=== PATIENT | female | born 1975 | race African-American/Black ===

== ENCOUNTER 2018-07-02 17:07 | Emergency (ER) | payer SELFPAY ==
[2018-07-02 17:20] VITALS: BP 135/81
--- NOTE | 2018-07-02 17:33 | ER Document Report ---
ED Medical Screen (RME) - General Chief Complaint: Anxiety Stated Complaint: ANXIETY ATTACK Time Seen by Provider: 07/02/18 17:28 Mode of Arrival: Ambulatory Information source: Patient Notes: Patient says she is having an anxiety attack. She would not give me any more history apart from that. She said that staying around people she does not know make her more anxious. I have greeted and performed a rapid initial assessment of this patient. A comprehensive ED assessment and evaluation of the patient, analysis of test results and completion of the medical decision making process will be conducted by additional ED providers. TRAVEL OUTSIDE OF THE [place] IN LAST 30 DAYS: No - Related Data Allergies/Adverse Reactions: amoxicillin [Amoxicillin] Allergy (Verified 07/02/18 17:26) Hives Past Medical History - Social History Frequency of alcohol use: None Drug Abuse: Marijuana - Past Medical History Cardiac Medical History: Reports: Hx Hypertension Pulmonary Medical History: Reports: Hx Asthma Renal/ Medical History: Denies: Hx Peritoneal Dialysis Malignancy Medical History: Reports: Hx Cervical Cancer Past Surgical History: Reports: Hx Hysterectomy - Immunizations Immunizations up to date: Yes Hx Diphtheria, Pertussis, Tetanus Vaccination: Yes Physical Exam - Vital signs Vitals: Temp Pulse Resp BP Pulse Ox 98.2 F 104 H 20 135/81 H 100 07/02/18 17:19 07/02/18 17:19 07/02/18 17:19 07/02/18 17:19 07/02/18 17:19 Course - Vital Signs Vital signs: Temp Pulse Resp BP Pulse Ox 98.2 F 104 H 20 135/81 H 100 07/02/18 17:19 07/02/18 17:19 07/02/18 17:19 07/02/18 17:19 07/02/18 17:19 Doctor's Discharge - Discharge Instructions: Anxiety ([facility]) Referrals: KEYON MESSER MD [Primary Care Provider] - Follow up as needed
[2018-07-02] MEDS ORDERED: HYDROXYZINE HCL INJ 50 MG/1 ML VIAL IM ONE (18:19)
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
--- NOTE | 2018-07-02 20:13 | PSYCHOLOGICAL NOTE ---
Psych Note - Psych Note Psych Note: Met with Patient via telepsych. Patient was visibly shaking and anxious. She reported she believes her anxiety is related to the discontinuation of her celexa and gabapentin and being 0placed on buspar and abilify by [facility]. She was just discharged from [facility] on Jun 26, 2018 after she was inpatient for suicidal ideation. She reported her outpatient provider is [facility]. Discussion with patient revealed she generally feels good in the morning but by afternoon her depression starts and by evening she becomes ruminative and cannot sleep with the anxiety overcoming her. She indicated she does take Amlodipine in the morning for her blood pressure. She reported no significant stressor that triggers her depression or anxiety. Following discussion with Patient it appears possible the timing of taking her medication might be impacting her mood states and it was suggested the timing of her meds be discussed with her physician. She also indicated she felt as thought the Abilify was not helpful in addressing her depression. Patient was alert and oriented to person, place, time, and circumstance. Mood was anxious and affect was mood congruent. She denied suicidal / homicidal ideation, intent or plan. She denied auditory / visual hallucination and no delusional thoughts were noted. Thought processes were logical, rational, and linear. Conversational speech was within normal limits for rate, tone, and prosody. Intellectual abilities were estimated within the average range. Eye contact was well maintained. Attention and concentration was fair. Insight, judgment, and impulse control was fair. Diagnoses: 1. Generalized Anxiety Disorder with Depression Medication Recommendation from consulting psychiatric provider: 1. Discontinue Abilify 2. Start Effexor 37.5 mg daily 3. Continue Buspar 5 mg every morning and 10 mg every night Impression/ Plan: Patient is cleared from acute psychiatric services. Education was provided to Patient regarding anxiety, depression and neurobiology of the brain and neurotransmitters. Also discussed was how medications work within the body and how activities, hydration, self-care, etc. impact efficacy of medication. Patient indicated this information helped her tremendously and gave her hope regarding her mental health issues and she felt much better with the understanding of how medications work. Patient's two adult sons were present and indicated they were willing to care for their mother and she felt comfortable going with them. Patient reported her understanding of changing her medication times and the side effects of the new medications. ED Provider in agreement with recommendations and disposition.
== END 2018-07-02 19:36 | disposition home or self-care (01) ==
LOC: ER 17:07
DX: F41.9 Anxiety disorder, unspecified (principal)
CPT/HCPCS: 99284; 96372; J3490

== ENCOUNTER 2018-07-05 14:16 | Emergency (ER) | payer SELFPAY ==
--- NOTE | 2018-07-05 14:39 | ER Document Report ---
ED Medical Screen (RME) - General Chief Complaint: Suicidal Ideation Stated Complaint: SUICIDAL IDEATION Time Seen by Provider: 07/05/18 14:36 Mode of Arrival: Ambulatory Information source: Patient Notes: 42-year-old female presents to ED for suicidal ideation. She had a conference with Dr. Piña a few days ago. She states she does not want medication refills now she just wants to . She states the only medication she wants something to help her . Patient is answering questions appropriately walking with a even steady gait respirations regular and unlabored. I have greeted and performed a rapid initial assessment of this patient. A comprehensive ED assessment and evaluation of the patient, analysis of test results and completion of medical decision making process will be conducted by an additional ED providers. TRAVEL OUTSIDE OF THE [place] IN LAST 30 DAYS: No - Related Data Allergies/Adverse Reactions: amoxicillin [Amoxicillin] Allergy (Verified 07/02/18 17:26) Hives Past Medical History - Social History Chew tobacco use (# tins/day): No Frequency of alcohol use: None Drug Abuse: None - Past Medical History Cardiac Medical History: Reports: Hx Hypertension Pulmonary Medical History: Reports: Hx Asthma Renal/ Medical History: Denies: Hx Peritoneal Dialysis Malignancy Medical History: Reports: Hx Cervical Cancer Past Surgical History: Reports: Hx Hysterectomy - Immunizations Immunizations up to date: Yes Hx Diphtheria, Pertussis, Tetanus Vaccination: Yes Doctor's Discharge - Discharge Referrals: KEYON MESSER MD [Primary Care Provider] - Follow up as needed
[2018-07-05 15:58] LABS: ABSOLUTE EOSINOPHILS # (AUTO) 0.1 10^3/uL (0.0-0.6); ABSOLUTE LYMPHOCYTES (AUTO) 2.2 10^3/uL (0.5-4.7); ABSOLUTE MONOCYTES (AUTO) 0.5 10^3/uL (0.1-1.4); ABSOLUTE NEUT (AUTO) 9.1 10^3/uL (1.7-8.2); BASOPHILS % (AUTO) 0.4 % (0-2); EOSINOPHILS % (AUTO) 0.6 % (0-6); HEMATOCRIT 44.5 % (36.0-47.0); HEMOGLOBIN 14.7 g/dL (12.0-15.5); LYMPHOCYTES % (AUTO) 18.5 % (13-45); MEAN CORPUSCULAR HEMOGLOBIN 26.4 pg (27.0-33.4); MEAN CORPUSCULAR HGB CONC 33.1 g/dL (32.0-36.0); MEAN CORPUSCULAR VOLUME 80 fl (80-97); MONOCYTES % (AUTO) 4.5 % (3-13); PLATELET COUNT 428 10^3/uL (150-450); RED BLOOD COUNT 5.58 10^6/uL (3.72-5.28); RED CELL DISTRIBUTION WIDTH 14.7 % (11.5-14.0); TOTAL CELLS COUNTED % (AUTO) 100 %
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
[2018-07-05 16:17] LABS: ALANINE AMINOTRANSFERASE 45 U/L (9-52); ALKALINE PHOSPHATASE 76 U/L (38-126); ANION GAP 12 (5-19); ASPARTATE AMINO TRANSFERASE 27 U/L (14-36); BILIRUBIN,DIRECT 0.3 mg/dL (0.0-0.4); BILIRUBIN,TOTAL 0.5 mg/dL (0.2-1.3); BLOOD UREA NITROGEN 12 mg/dL (7-20); CALCIUM 10.6 mg/dL (8.4-10.2); CARBON DIOXIDE 28 mmol/L (22-30); CHLORIDE 103 mmol/L (98-107); GLUCOSE 107 mg/dL (75-110); POTASSIUM 4.1 mmol/L (3.6-5.0); SODIUM 142.6 mmol/L (137-145); TOTAL PROTEIN 9.1 g/dL (6.3-8.2)
[2018-07-05 16:18] LABS: ACETAMINOPHEN < 10 ug/mL (10-30); ALCOHOL < 10 mg/dL (NONE DETECTED); SALICYLATE < 1.0 mg/dL (2.0-20.0)
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
[2018-07-05] MEDS ORDERED: BUSPIRONE HCL 10 MG TABLET PO ONE (16:35)
[2018-07-05] MEDS ORDERED: VENLAFAXINE HCL 37.5 MG CAP.SR.24H PO ONE (16:35)
[2018-07-05 16:40] LABS: APPEARANCE,URINE CLEAR; BILIRUBIN,URINE NEGATIVE (NEGATIVE); COLOR,URINE STRAW; GLUCOSE, URINE NEGATIVE (NEGATIVE); KETONES,URINE NEGATIVE (NEGATIVE); LEUKOCYTE ESTERASE,URINE NEGATIVE (NEGATIVE); NITRITE,URINE NEGATIVE (NEGATIVE); PROTEIN,URINE NEGATIVE (NEGATIVE); URINE SPECIFIC GRAVITY 1.013
[2018-07-05 16:49] LABS: URINE AMPHETAMINES SCREEN NEGATIVE; URINE BARBITURATES SCREEN NEGATIVE; URINE BENZODIAZEPINES SCREEN NEGATIVE; URINE MARIJUANA (THC) SCREEN UNCONFIRMED POSITIVE; URINE METHADONE SCREEN NEGATIVE; URINE PHENCYCLIDINE SCREEN NEGATIVE
[2018-07-05 16:59] LABS: URINE COCAINE SCREEN NEGATIVE
--- NOTE | 2018-07-05 21:15 | EKG REPORT ---
SEVERITY:- BORDERLINE ECG - SINUS TACHYCARDIA PROBABLE LEFT ATRIAL ABNORMALITY BORDERLINE T ABNORMALITIES, ANT-LAT LEADS : Confirmed by: Star Barrow 05-Jul-2018 21:14:54
== END 2018-07-05 19:10 | disposition home or self-care (01) ==
LOC: ER 14:16
DX: F33.41 Major depressive disorder, recurrent, in partial remission (principal); Z79.899 Other long term (current) drug therapy; J45.909 Unspecified asthma, uncomplicated; I10 Essential (primary) hypertension
CPT/HCPCS: 93005; 99285; 36415; 80307 ×4; 84703; 85025; 80053; 81001; 93010; J3490

== ENCOUNTER 2018-07-07 18:52 | Emergency (ER) | payer SELFPAY ==
--- NOTE | 2018-07-07 19:33 | ER Document Report ---
ED Medical Screen (RME) - General TRAVEL OUTSIDE OF THE U.S. IN LAST 30 DAYS: No <MARINA TREVINO - Last Filed: 07/07/18 19:32> <ZENOBIA VALDEZ - Last Filed: 07/07/18 21:31> - General Chief Complaint: Suicidal Ideation Stated Complaint: SUICIDAL IDEATION Time Seen by Provider: 07/07/18 19:31 Notes: 42 years old female presents today with depression suicidal ideation by taking overdose of pills. She was discharged recently from [facility] for similar reason. She was put on Abilify but she has not been taking them. Has a history of PTSD also Appear to be suicidal. (MARINA TREVINO) - Related Data Allergies/Adverse Reactions: amoxicillin [Amoxicillin] Allergy (Verified 07/07/18 19:28) Hives Past Medical History - Social History Frequency of alcohol use: None Drug Abuse: None - Past Medical History Cardiac Medical History: Reports: Hx Hypertension Pulmonary Medical History: Reports: Hx Asthma Renal/ Medical History: Denies: Hx Peritoneal Dialysis Malignancy Medical History: Reports: Hx Cervical Cancer Past Surgical History: Reports: Hx Hysterectomy - Immunizations Immunizations up to date: Yes Hx Diphtheria, Pertussis, Tetanus Vaccination: Yes <MARINA TREVINO - Last Filed: 07/07/18 19:32> - Vital signs Vitals: Temp Resp BP Pulse Ox 98.4 F 16 143/93 H 143 H 07/07/18 19:12 07/07/18 19:12 07/07/18 19:12 07/07/18 19:12 Course - Laboratory Result Diagrams: 07/07/18 21:00 07/07/18 21:00 <ZENOBIA VALDEZ - Last Filed: 07/07/18 21:31> - Vital Signs Vital signs: Temp Pulse Resp BP Pulse Ox 98.4 F 16 143/93 H 143 H 07/07/18 19:12 07/07/18 19:12 07/07/18 19:12 07/07/18 19:12 - Laboratory Laboratory results interpreted by me: 07/07/18 07/07/18 20:49 21:00 WBC 13.9 H RBC 5.45 H MCV 79 L MCH 26.2 L RDW 14.3 H Absolute Neutrophils 10.2 H Urine Protein 30 H Urine Blood SMALL H Ur Leukocyte Esterase TRACE H Doctor's Discharge <MARINA TREVINO - Last Filed: 07/07/18 19:32> <ZENOBIA VALDEZ - Last Filed: 07/07/18 21:31> - Discharge Referrals: KEYON MESSER MD [Primary Care Provider] - Follow up as needed
[2018-07-07 21:15] LABS: ABSOLUTE EOSINOPHILS # (AUTO) 0.1 10^3/uL (0.0-0.6); ABSOLUTE LYMPHOCYTES (AUTO) 2.7 10^3/uL (0.5-4.7); ABSOLUTE MONOCYTES (AUTO) 0.9 10^3/uL (0.1-1.4); ABSOLUTE NEUT (AUTO) 10.2 10^3/uL (1.7-8.2); BASOPHILS % (AUTO) 0.4 % (0-2); EOSINOPHILS % (AUTO) 0.6 % (0-6); HEMATOCRIT 43.2 % (36.0-47.0); HEMOGLOBIN 14.3 g/dL (12.0-15.5); LYMPHOCYTES % (AUTO) 19.5 % (13-45); MEAN CORPUSCULAR HEMOGLOBIN 26.2 pg (27.0-33.4); MEAN CORPUSCULAR VOLUME 79 fl (80-97); MONOCYTES % (AUTO) 6.3 % (3-13); PLATELET COUNT 432 10^3/uL (150-450); RED BLOOD COUNT 5.45 10^6/uL (3.72-5.28); RED CELL DISTRIBUTION WIDTH 14.3 % (11.5-14.0); SEGMENTED NEUTROPHILS % (AUTO) 73.2 % (42-78); TOTAL CELLS COUNTED % (AUTO) 100 %; WHITE BLOOD COUNT 13.9 10^3/uL (4.0-10.5)
[2018-07-07 21:17] LABS: APPEARANCE,URINE CLEAR; COLOR,URINE YELLOW; GLUCOSE, URINE NEGATIVE (NEGATIVE)
[2018-07-07 21:18] LABS: BILIRUBIN,URINE NEGATIVE (NEGATIVE); KETONES,URINE NEGATIVE (NEGATIVE); LEUKOCYTE ESTERASE,URINE TRACE (NEGATIVE); NITRITE,URINE NEGATIVE (NEGATIVE); PROTEIN,URINE 30 mg/dL (NEGATIVE); URINE SPECIFIC GRAVITY 1.015; UROBILINOGEN,URINE NEGATIVE mg/dL (<2.0)
[2018-07-07 21:47] LABS: URINE AMPHETAMINES SCREEN NEGATIVE; URINE BARBITURATES SCREEN NEGATIVE; URINE BENZODIAZEPINES SCREEN NEGATIVE; URINE COCAINE SCREEN NEGATIVE; URINE MARIJUANA (THC) SCREEN UNCONFIRMED POSITIVE; URINE METHADONE SCREEN NEGATIVE; URINE PHENCYCLIDINE SCREEN NEGATIVE
[2018-07-07 21:53] LABS: ALANINE AMINOTRANSFERASE 31 U/L (9-52); ALBUMIN 4.9 g/dL (3.5-5.0); ALKALINE PHOSPHATASE 77 U/L (38-126); ANION GAP 12 (5-19); ASPARTATE AMINO TRANSFERASE 21 U/L (14-36); BILIRUBIN,DIRECT 0.5 mg/dL (0.0-0.4); BILIRUBIN,TOTAL 0.9 mg/dL (0.2-1.3); BLOOD UREA NITROGEN 13 mg/dL (7-20); CALCIUM 9.8 mg/dL (8.4-10.2); CARBON DIOXIDE 27 mmol/L (22-30); CHLORIDE 102 mmol/L (98-107); GLUCOSE 94 mg/dL (75-110); POTASSIUM 3.2 mmol/L (3.6-5.0); SODIUM 140.7 mmol/L (137-145); TOTAL PROTEIN 9.1 g/dL (6.3-8.2)
[2018-07-07 21:56] LABS: ACETAMINOPHEN < 10 ug/mL (10-30); ALCOHOL < 10 mg/dL (NONE DETECTED); SALICYLATE < 1.0 mg/dL (2.0-20.0)
--- NOTE | 2018-07-07 21:59 | ER Document Report ---
ED Psych Disorder / Suicide - General Chief Complaint: Suicidal Ideation Stated Complaint: SUICIDAL IDEATION Time Seen by Provider: 07/07/18 19:31 Mode of Arrival: Ambulatory Information source: Patient Notes: Patient presented to the emergency room today, complaining of suicidal ideation. She said ever since her baby sister a couple of months ago she has been suicidal. She feels her life is worthless and she does not want to live anymore. She wants to overdose on her medication in order to commit suicide. Patient has been hospitalized before for suicidal ideation. She was discharged with some psychiatric medication which she said is not working and the medication is making her suicide ideation worse. TRAVEL OUTSIDE OF THE [place] IN LAST 30 DAYS: No - HPI Patient complains to provider of: Suicidal ideation, Suicidal plan Onset: Other - 2 months. Onset was: Gradual Quality of pain: No pain Severity: None Pain Level: Denies Suicide Risk Factors: Depressed Situational problems related to: Other - Loss of loved one. Suicide Attempt Method: Overdose Normal mood: Yes Associated symptoms: Normal mood, Flat affect Similar symptoms previously: Yes Recently seen / treated by doctor: No - Related Data Allergies/Adverse Reactions: amoxicillin [Amoxicillin] Allergy (Verified 07/07/18 19:28) Hives Past Medical History - Social History Smoking Status: Never Smoker Frequency of alcohol use: None Drug Abuse: None Family History: Reviewed & Not Pertinent Patient has suicidal ideation: Yes Patient has homicidal ideation: No - Past Medical History Cardiac Medical History: Reports: Hx Hypertension Pulmonary Medical History: Reports: Hx Asthma Renal/ Medical History: Denies: Hx Peritoneal Dialysis Malignancy Medical History: Reports: Hx Cervical Cancer Psychiatric Medical History: Reports: Hx Depression - suicide attempt w/ pills May 2018 Past Surgical History: Reports: Hx Hysterectomy - Immunizations Immunizations up to date: Yes Hx Diphtheria, Pertussis, Tetanus Vaccination: Yes Review of Systems - Review of Systems Constitutional: No symptoms reported EENT: No symptoms reported Cardiovascular: No symptoms reported Respiratory: No symptoms reported Gastrointestinal: No symptoms reported Genitourinary: No symptoms reported Female Genitourinary: No symptoms reported Musculoskeletal: No symptoms reported Skin: No symptoms reported Hematologic/Lymphatic: No symptoms reported Neurological/Psychological: Depression, Suicidal ideation. denies: Homicidal ideation -: Yes All other systems reviewed and negative Physical Exam - Vital signs Vitals: Temp Resp BP Pulse Ox 98.4 F 16 143/93 H 143 H 07/07/18 19:12 07/07/18 19:12 07/07/18 19:12 07/07/18 19:12 - General General appearance: Appears well, Alert In distress: None - HEENT Head: Normocephalic, Atraumatic Eyes: Normal Pupils: PERRL - Respiratory Respiratory status: No respiratory distress Chest status: Nontender Breath sounds: Normal Chest palpation: Normal - Cardiovascular Rhythm: Regular Heart sounds: Normal auscultation Murmur: No - Abdominal Inspection: Normal Distension: No distension Bowel sounds: Normal Tenderness: Nontender Organomegaly: No organomegaly - Back Back: Normal, Nontender - Extremities General upper extremity: Normal inspection, Nontender, Normal color, Normal ROM , Normal temperature General lower extremity: Normal inspection, Nontender, Normal color, Normal ROM , Normal temperature, Normal weight bearing. No: Adi's sign - Neurological Neuro grossly intact: Yes Cognition: Normal Orientation: AAOx4 [place] Coma Scale Eye Opening: Spontaneous Sarah Coma Scale Verbal: Oriented [place] Coma Scale Motor: Obeys Commands [place] Coma Scale Total: 15 Speech: Normal Motor strength normal: LUE, RUE, LLE, RLE Sensory: Normal - Psychological Associated symptoms: Normal mood, Flat affect - Skin Skin Temperature: Warm Skin Moisture: Dry Skin Color: Normal Course - Vital Signs Vital signs: Temp Pulse Resp BP Pulse Ox 98 F 74 14 122/78 98 07/07/18 22:47 07/07/18 22:47 07/07/18 22:47 07/07/18 22:47 07/07/18 22:47 - Laboratory Result Diagrams: 07/07/18 21:00 07/07/18 21:00 Laboratory results interpreted by me: 07/07/18 07/07/18 07/07/18 20:49 21:00 21:00 WBC 13.9 H RBC 5.45 H MCV 79 L MCH 26.2 L RDW 14.3 H Absolute Neutrophils 10.2 H Potassium 3.2 L Direct Bilirubin 0.5 H Total Protein 9.1 H Urine Protein 30 H Urine Blood SMALL H Ur Leukocyte Esterase TRACE H Salicylates < 1.0 L Acetaminophen < 10 L - EKG Interpretation by Sd EKG shows normal: Sinus rhythm Rate: Normal - 88 Rhythm: NSR When compared to previous EKG there are: Previous EKG unavailable Additional EKG results interpreted by me: 07/07/18 21:54 Nonspecific T-wave changes. No STEMI. - Transfer of Care Notes: 07/07/18 21:54 Suicidal ideation. Discharge - Discharge Clinical Impression: Suicidal ideation, Marijuana abuse, Hypokalemia Major depressive disorder Qualifiers: Major depression recurrence: recurrent Active/Remission status: remission status unspecified Qualified Code(s): F33.9 - Major depressive disorder, recurrent, unspecified Condition: Stable Disposition: PSYCH HOSP/UNIT Referrals: KEYON MESSER MD [Primary Care Provider] - Follow up as needed
[2018-07-07] MEDS ORDERED: POTASSIUM CHLORIDE 20 MEQ/15 ML UDCUP PO ONE (22:21)
[2018-07-07 22:48] VITALS: BP 122/78
[2018-07-08] MEDS ORDERED: LORAZEPAM 1 MG TABLET PO ONE (02:26)
[2018-07-08] MEDS ORDERED: BUSPIRONE HCL 10 MG TABLET PO ONE (12:13)
--- NOTE | 2018-07-08 12:19 | ER Document Report ---
Doctor's Note Notes: 07/08/18 12:18 Patient has been seen and evaluated resting comfortably no acute distress. Laboratory values previous provider note and vital signs have been evaluated. Patient otherwise looks to be stable for disposition/transfer.
--- NOTE | 2018-07-08 15:26 | EKG REPORT ---
SEVERITY:- BORDERLINE ECG - SINUS RHYTHM BORDERLINE T WAVE ABNORMALITIES : Confirmed by: Sayra Akhtar MD 08-Jul-2018 15:24:46
--- NOTE | 2018-07-08 19:40 | PSYCHOLOGICAL NOTE ---
Psych Note - Psych Note Psych Note: Chart review at 0817. Evaluation from [id number]. Attempted collateral from son at 0943 no answer (spoke to him finally from [id number]). Reason for Consult: Depression, SI with plan to OD on sleeping pills Contact Permissions: Joe Peralta [phone] Patient is a 42 year old female who presented to the ED last evening on her own for depression and SI. She stated "I am good but could be better" when asked how she was doing. She stated she was not able to get medications filled from (this clinician referenced that visit) visit and had only 3 days of actual medications the hospital gave to her. She noted "too much stress with daughter being out of state due to [place], staying with son, and the arguing environment at her son's." She said [address] at [facility] was still her provider and her pharmacy was [facility] but she has used [facility] (this clinician aware this particular local pharmacy was open today) previously. She denied SI and commented "not now in this moment but get anxious about going back to that environment." Patient was alert and oriented to person, place, time and situation. Mood was euthymic with congruent affect. She denied current SI/HI. She did not appear to be responding to internal stimuli as evidenced by fair eye contact, answering questions appropriately when addressed, staying on topic and carrying on dialogue conversation. Thought processes were linear and organized. Conversational speech was within normal limits for rate, tone and prosody. Intellectual abilities are estimated to be average. Insight, judgment and impulse control were fair as evidenced by bright/euthymic affect with linear/ organized thinking. Chart review revealed patient was seen by Dr. Piña 07/02/18 for similar etiology after just being discharged from [facility] on 06/26/18 where she was prescribed Abilify and Buspar. Her medications were changed as follows: Discontinued Abilify, Added Effexor 37.5MG QD and Continue Buspar 5MG QAM/10MG QHS. A safe discharge was coordinated with 2 sons. Then she came back and saw another Behavioral Health Clinician on 07/05/18 for similar etiology but noted grief from her baby sister passing away in February 2018. She was discharged again given she had just been seen and provided medications changes with scripts. Patient's son identified he "thinks patient is pill popping, said she takes her medications so fast, mentioned she just want s to take her Gabapentin, and she seems to be playing since this is her 3rd visit to the ED in a week period and was just discharged from [facility]." He stated he and his brother have been paying for medications and will continue if she takes them accordingly. He stated they would be in control of medications and administration and he would be able to provide transportation from ED back to his home. Provided him with the I[facility] MCM number and explained it's use (talk therapy, crisis, linkage to other services/ supports). He was also informed patient should follow up with medication provider at [facility] or another linkage [facility] could provide joey. Diagnosis: 300.02 (F41.1) Generalized Anxiety Disorder 311 9F32.9) Unspecified Depressive Disorder Impression/Plan: Patient is cleared from acute psychiatric services. She denied current SI/HI. There was no observed psychosis. Local [facility] open in order to obtain medications she said she could not fill. She had bright/euthymic mood/ affect and linear/organized thinking. Sons on board with being in charge of medications and administration. Sounds like she is misusing medications per son. Son provided IF MCM number and usages (talk therapy, crisis, linkages to other services/supports). Patient;s son made aware she should follow up with outpatient provider at [facility] or another linkage [facility] could provide for medication management joey. Consulted with Dr. Piña regarding the management and care of patient. ED Physician in agreement with recommendations.
== END 2018-07-08 12:24 | disposition home or self-care (01) ==
LOC: ER 18:52
DX: R45.851 Suicidal ideations (principal); F32.9 Major depressive disorder, single episode, unspecified; E87.6 Hypokalemia; F33.9 Major depressive disorder, recurrent, unspecified; F12.10 Cannabis abuse, uncomplicated; I10 Essential (primary) hypertension; Z88.0 Allergy status to penicillin
CPT/HCPCS: 36415; 80053; 80307; 81001; 84443; 85025; 93005; 93010; 99285

== ENCOUNTER 2020-04-03 00:31 | Emergency (ER) | payer SELFPAY ==
[2020-04-03 01:22] LABS: ABSOLUTE BASOPHILS # (AUTO) 0.1 10^3/uL (0.0-0.2); ABSOLUTE EOSINOPHILS # (AUTO) 0.3 10^3/uL (0.0-0.6); ABSOLUTE MONOCYTES (AUTO) 0.7 10^3/uL (0.1-1.4); ABSOLUTE NEUT (AUTO) 7.6 10^3/uL (1.7-8.2); BASOPHILS % (AUTO) 0.6 % (0-2); EOSINOPHILS % (AUTO) 2.5 % (0-6); HEMATOCRIT 41.8 % (36.0-47.0); HEMOGLOBIN 13.7 g/dL (12.0-15.5); LYMPHOCYTES % (AUTO) 25.5 % (13-45); MEAN CORPUSCULAR HEMOGLOBIN 26.3 pg (27.0-33.4); MEAN CORPUSCULAR HGB CONC 32.8 g/dL (32.0-36.0); MEAN CORPUSCULAR VOLUME 80 fl (80-97); PLATELET COUNT 342 10^3/uL (150-450); RED BLOOD COUNT 5.21 10^6/uL (3.72-5.28); RED CELL DISTRIBUTION WIDTH 14.6 % (11.5-14.0); SEGMENTED NEUTROPHILS % (AUTO) 65.4 % (42-78); TOTAL CELLS COUNTED % (AUTO) 100 %; WHITE BLOOD COUNT 11.6 10^3/uL (4.0-10.5)
[2020-04-03 01:35] LABS: ALBUMIN 4.9 g/dL (3.5-5.0); ALKALINE PHOSPHATASE 71 U/L (38-126); ANION GAP 9 (5-19); ASPARTATE AMINO TRANSFERASE 30 U/L (14-36); BILIRUBIN,TOTAL 0.4 mg/dL (0.2-1.3); BLOOD UREA NITROGEN 15 mg/dL (7-20); CALCIUM 10.2 mg/dL (8.4-10.2); CARBON DIOXIDE 27 mmol/L (22-30); CHLORIDE 104 mmol/L (98-107); GLUCOSE 120 mg/dL (75-110); POTASSIUM 3.4 mmol/L (3.6-5.0); TOTAL PROTEIN 8.2 g/dL (6.3-8.2)
[2020-04-03 01:37] LABS: APPEARANCE,URINE CLEAR; BILIRUBIN,URINE NEGATIVE (NEGATIVE); COLOR,URINE YELLOW; GLUCOSE, URINE NEGATIVE (NEGATIVE); KETONES,URINE NEGATIVE (NEGATIVE); LEUKOCYTE ESTERASE,URINE NEGATIVE (NEGATIVE); NITRITE,URINE NEGATIVE (NEGATIVE); PROTEIN,URINE 100 mg/dL (NEGATIVE); UROBILINOGEN,URINE NEGATIVE mg/dL (<2.0)
--- NOTE | 2020-04-03 01:51 | ER Document Report ---
ED General - General Chief Complaint: Abdominal Pain Stated Complaint: LOWER ABDOMINAL PAIN Primary Care Provider: KEYON MESSER MD [Primary Care Provider] - Follow up as needed Notes: Patient is a 44-year-old -[place] female with a past medical history depression, anxiety, hypertension, neuropathy, diabetes who presents to the [facility] department the chief complaint of abdominal pain to the left lower quadrant for the past 2 weeks. She states it is very mild in nature. She states is been associated with intermittent episodes of diarrhea and vomiting. She does admit to some "hot flashes" but denies any fever. Patient reports that she got into an argument with her oldest son before coming to the emergency department she feels this is why her blood pressure is up. She states that she does take medicine for blood pressure and that she took it today. She denies any headache or visual disturbances. She denies any dizziness or neck pain. No chest pain or shortness of breath. No numbness, tingling or weakness. TRAVEL OUTSIDE OF THE [place] IN LAST 30 DAYS: No - Related Data Allergies/Adverse Reactions: amoxicillin [Amoxicillin] Allergy (Verified 07/07/18 19:28) Hives Past Medical History - Social History Smoking Status: Current Some Day Smoker Drug Abuse: Marijuana Family History: Reviewed & Not Pertinent Patient has homicidal ideation: No - Past Medical History Cardiac Medical History: Reports: Hx Hypertension Pulmonary Medical History: Reports: Hx Asthma Renal/ Medical History: Denies: Hx Peritoneal Dialysis Malignancy Medical History: Reports: Hx Cervical Cancer Psychiatric Medical History: Reports: Hx Depression - suicide attempt w/ pills May 2018 Past Surgical History: Reports: Hx Hysterectomy - Immunizations Immunizations up to date: Yes Hx Diphtheria, Pertussis, Tetanus Vaccination: Yes Review of Systems - Review of Systems Gastrointestinal: Abdominal pain, Diarrhea, Nausea, Vomiting -: Yes All other systems reviewed and negative Physical Exam - Vital signs Vitals: Temp Pulse Resp BP Pulse Ox 97.9 F 95 20 202/111 H 96 04/03/20 00:38 04/03/20 00:38 04/03/20 00:38 04/03/20 00:38 04/03/20 00:38 - General General appearance: Appears well, Alert In distress: None - Respiratory Respiratory status: No respiratory distress Chest status: Nontender Breath sounds: Normal Chest palpation: Normal - Cardiovascular Rhythm: Regular Heart sounds: Normal auscultation Murmur: No - Abdominal Inspection: Normal Distension: No distension Bowel sounds: Normal Tenderness: Nontender Organomegaly: No organomegaly - Back Back: No: CVA tenderness - Neurological Neuro grossly intact: Yes Cognition: Normal Orientation: AAOx4 [place] Coma Scale Eye Opening: Spontaneous [place] Coma Scale Verbal: Oriented [place] Coma Scale Motor: Obeys Commands [place] Coma Scale Total: 15 Speech: Normal - Psychological Associated symptoms: Normal affect, Normal mood - Skin Skin Temperature: Warm Skin Moisture: Dry Skin Color: Normal Course - Re-evaluation Re-evalutation: 04/03/20 03:50 No evidence of causative etiology on CT scan. Work-up largely unremarkable with some minor abnormalities. We discussed the incidental umbilical hernia and the elevated glucose as well. Patient requests room and board at local psychiatric facility, [facility]. We called they do have beds available but they will need to triage her to see if she meets criteria prior to acceptance. The facility is [place]-door to our emergency department, she will be discharged and she will walk next-door for triage evaluation. She was also given a list of multiple other facilities that might be able to assist if she does not meet bed capacity requirements there. She is not suicidal or homicidal. She just felt like going home would be stressful because there is a lot of arguing and door slamming going on, causing her to become tearful. She has a history of depression and anxiety as well as suicide attempt in 2018. She is stable and appropriate for discharge and outpatient follow-up. Advised to return here or any ER immediately with any new, persistent or worsening symptoms. She verbalized understood and agreed. We discussed possible dietary changes in relation to her ongoing abdominal discomfort and diarrhea. If no improvement she will seek referral from PCP to GI. - Vital Signs Vital signs: Temp Pulse Resp BP Pulse Ox 97.7 F 77 17 182/97 H 98 04/03/20 03:32 04/03/20 03:32 04/03/20 03:32 04/03/20 03:32 04/03/20 03:32 - Laboratory Result Diagrams: 04/03/20 01:05 04/03/20 01:05 Laboratory results interpreted by me: 04/03/20 04/03/20 04/03/20 01:05 01:05 01:05 WBC 11.6 H MCH 26.3 L RDW 14.6 H Potassium 3.4 L Est GFR ( Amer) 57 L Est GFR (MDRD) Non-Af 47 L Glucose 120 H Lipase 375.6 H Urine Protein 100 H Discharge - Discharge Clinical Impression: Abdominal pain Qualifiers: Abdominal location: unspecified location Qualified Code(s): R10.9 - Unspecified abdominal pain Diarrhea Qualifiers: Diarrhea type: unspecified type Qualified Code(s): R19.7 - Diarrhea, unspecified Condition: Stable Disposition: HOME, SELF-CARE Instructions: Diarrhea, Nonspecific ([facility]) Additional Instructions: Follow-up with your regular doctor in 2 to 3 days for reevaluation. Return here or any ER immediately with any new, persistent or worsening symptoms. Referrals: KEYON MESSER MD [Primary Care Provider] - Follow up as needed
--- NOTE | 2020-04-03 02:42 | RADIOLOGY REPORT (SQ) ---
EXAM DESCRIPTION: CT ABDOMEN PELVIS WITH IV CONTRAST COMPLETED DATE/TME: 04/03/2020 01:46 CLINICAL HISTORY: 44 years, Female, LLQ pn. n/v/d Comparison: None TECHNIQUE: Contiguous axial CT images of the abdomen and pelvis were obtained. Sagittal and coronal reformats were reviewed. This exam was performed according to our departmental dose-optimization program, which includes automated exposure control, adjustment of the mA and/or kV according to patient size and/or use of iterative reconstruction technique. FINDINGS: Lung bases: Clear. Liver:Unremarkable. No focal liver lesion. Gallbladder:Unremarkable. No gallstones. No gallbladder wall thickening or pericholecystic fluid. Spleen:Unremarkable Pancreas: Pancreas is unremarkable. Adrenal glands:Within normal limits. Kidneys/ureters:Within normal limits Stomach/small bowel/colon: Stomach is unremarkable. Small bowel is unremarkable. Colon is unremarkable. Appendix: No evidence of appendicitis. Peritoneum: No free fluid. Vascular structures: within normal limits Lymph nodes: No abnormal lymph nodes. Bladder:Unremarkable. Pelvic organs: No acute abnormality Bones: No acute osseous abnormality. Degenerative changes in both SI joints. Soft tissues: Small fat containing umbilical hernia.. IMPRESSION: No acute intra-abdominal abnormality. All CT scanners at this facility use dose modulation, iterative reconstruction, and/or weight based dosing when appropriate to reduce radiation dose to as low as reasonably achievable (ALARA). [facility]: Dose Right [facility]: CareDose [facility]: Dose Right [facility]: Teradose 4D [facility]: Vivogig TECHNICAL DOCUMENTATION: Quality ID # [id number]: Final reports with documentation of one or more dose reduction techniques (e.g., Automated exposure control, adjustment of the mA and/or kV according to patient size, use of iterative reconstruction technique) copyright 2011 [employer]- All Rights Reserved
[2020-04-03 04:18] VITALS: BP 177/97
== END 2020-04-03 04:19 | disposition home or self-care (01) ==
LOC: ER 00:31
DX: R10.9 Unspecified abdominal pain (principal); R19.7 Diarrhea, unspecified; R10.32 Left lower quadrant pain; R11.2 Nausea with vomiting, unspecified; I10 Essential (primary) hypertension; E11.40 Type 2 diabetes mellitus with diabetic neuropathy, unspecified; Z88.1 Allergy status to other antibiotic agents; F17.200 Nicotine dependence, unspecified, uncomplicated; Z79.899 Other long term (current) drug therapy; J45.909 Unspecified asthma, uncomplicated
CPT/HCPCS: 36415; 74177; 80053; 81001; 81025; 83690; 85025; 99284